=== PATIENT | female | born 1985 | race Caucasian/White ===

== ENCOUNTER 2019-06-06 16:20 | Outpatient (RCR) | payer BC, SELFPAY ==
[2019-06-06] MEDS: RHO(D) IMMUNE GLOBULIN 300 MCG SYRINGE IM (21:10)
== END 2019-09-04 23:59 | disposition home or self-care (01) ==
LOC: ANHLAB 16:20
PROVIDERS: Visit Provider Obstetrics & Gynecology Gynecology
DX: Z29.13 Encounter for prophylactic Rho(D) immune globulin (principal); O36.0920 Maternal care for other rhesus isoimmunization, second trimester, not applicable or unspecified; Z3A.00 Weeks of gestation of pregnancy not specified
CPT/HCPCS: 36415; 36430; 90384; 96372; J2790

== ENCOUNTER 2019-08-06 09:02 | Outpatient (RCR) | payer BC, SELFPAY ==
[2019-08-06 11:04] LABS: Hematocrit 32.5 % (37.0-47.0); Hemoglobin 10.8 g/dL (12.0-15.0)
[2019-08-06 11:25] LABS: Glucose 1 Hour PP 50gm Dose 173 mg/dL
[2019-08-06 11:29] LABS: Vitamin D 25 Hydroxy 49.7 ng/mL
[2019-08-06 11:39] LABS: HIV 1/2 Ab P24 Ag Result Negative (Negative)
[2019-08-07] MEDS: RHO(D) IMMUNE GLOBULIN 300 MCG SYRINGE IM (17:17)
== END 2019-11-04 23:59 | disposition home or self-care (01) ==
LOC: ANHLAB 09:02
PROVIDERS: Visit Provider Obstetrics & Gynecology Gynecology
DX: Z36.89 Encounter for other specified antenatal screening (principal); Z29.13 Encounter for prophylactic Rho(D) immune globulin; O36.0930 Maternal care for other rhesus isoimmunization, third trimester, not applicable or unspecified; Z3A.00 Weeks of gestation of pregnancy not specified
CPT/HCPCS: 36415; 82306; 82947; 85014; 85018; 86703; 90384; 96372; G0432; J2790

== ENCOUNTER → 2019-08-27 10:50 | Outpatient (CLI) | payer BC, SELFPAY ==
--- NOTE | ~2019-08-27 | US_ITS ---
EXAMINATION: US OB follow up DATE: 08/27/2019 11:22 INDICATION: Size greater than dates during third trimester , gestational diabetes TECHNIQUE: Real-time ultrasound of the pelvis was performed. The interpreting radiologist was not pre sent for the study. COMPARISON: 07/24/2019 FINDINGS: There is a single living fetus in vertex presentation. The placenta is anterior and 6.5 cm from the internal cervical os. cardiac activity and movement are noted. heart rate is 136 beats per minute (bpm). The amniotic fluid index is 10.4 cm which is normal. The following biometric data were obtained: Biparietal diameter (BPD): 8.5 cm; head circumference (HC): 31.8 cm; abdominal circumference (AC): 31 .2 cm; femur length (FL): 6.5 cm. These measurements are concordant. Estimated weight is 2505 g +/- 375 g, which correlates with the >97th percentile when 10/28/2019 is used as estimated date of delivery. As single measurements, these parameters are each equal to the following estimated gestational ages w ith ranges of +/- 2 standard deviations: BPD: 34 weeks 2 days ( 31 weeks 1 days - 37 weeks 2 days). HC: 35 weeks 6 days ( 32 weeks 6 days - 38 weeks 5 days). AC: 35 weeks 1 days ( 32 weeks 1 days - 38 weeks 1 days). FL: 33 weeks 5 days ( 30 weeks 6 days - 36 weeks 5 days). estimated gestational age based solely on measurements from this exam is 34 weeks 5 days +/- 2 weeks 3 days. IMPRESSION: 1. Single living fetus in vertex presentation. 2. Estimated weight is 2505 g +/- 375 g, which correlates with the >97th percentile when 020 is used as estimated date of delivery. 3. estimated gestational age based solely on measurements from this exam is 34 weeks 5 days +/- 2 weeks 3 days. 4. Normal amniotic fluid index. Reviewed, dictated and finalized at location A. STANT DRAFTER IMPRESSION: 1. Single living fetus in vertex presentation. 2. Estimated weight is 2505 g +/- 375 g, which correlates with the >97th percentile when 10/28/2019 is used as estimated date of delivery. 3. estimated gestational age based solely on measurements from this exam is 34 weeks 5 days +/- 2 weeks 3 days. 4. Normal amniotic fluid index.
== END ==
PROVIDERS: Visit Provider Obstetrics & Gynecology Gynecology
DX: O36.63X0 Maternal care for excessive fetal growth, third trimester, not applicable or unspecified (principal); Z3A.00 Weeks of gestation of pregnancy not specified; Z3A.34 34 weeks gestation of pregnancy
CPT/HCPCS: 76816

== ENCOUNTER 2019-09-09 12:13 | Outpatient (CLI) | payer BC, SELFPAY ==
[2019-09-09 13:27] VITALS: BP 115/63; PULSE 86
== END 2019-09-09 12:26 | disposition home or self-care (01) ==
PROVIDERS: Visit Provider Obstetrics & Gynecology Gynecology
DX: O24.419 Gestational diabetes mellitus in pregnancy, unspecified control (principal)
CPT/HCPCS: 59025

== ENCOUNTER → 2019-10-01 10:15 | Outpatient (CLI) | payer BC, SELFPAY ==
--- NOTE | ~2019-10-01 | US_ITS ---
EXAMINATION: US OB follow up DATE: 10/01/2019 11:06 INDICATION: Gestational diabetes presenting with estimated size greater than estimated gestatio nal age. Assess growth and amniotic fluid index. TECHNIQUE: Real-time ultrasound of the pelvis was performed. The interpreting radiologist was not pre sent for the study. COMPARISON: 09/23/2019 FINDINGS: There is a single living fetus in vertex presentation. The placenta is anterior. heart rate is 151 beats per minute (bpm). The amniotic fluid index is 12.8 cm, which is normal (5th%-95%: 7.7-24. 9 cm at 36 weeks estimated gestational age). The following biometric data were obtained: BPD: 9.3 cm -> 37 weeks 5 days Head circumference: 34.2 cm -> 39 weeks 3 days Abdominal circumference: 34.2 cm -> 28 weeks 1 days Femur length: 6.9 cm -> 35 weeks 2 days These measurements are concordant. Head circumference to abdominal circumference ratio: 1.00 (normal range 0.90-1.05). Estimated weight: 3234 g (+/-) 485 g. or 7 lbs. 2 oz. (+/-) 1 lb. 1 oz. IMPRESSION: 1. Single living fetus in vertex presentation with heart rate of 151 bpm. 2. Normal amniotic fluid index of 12.8 cm. 3. Estimated weight is 86th percentile by Hadlock criteria when 10/28/2019 is used as the estima jo ann date of delivery (DAVE) based upon earliest ultrasound performed at this institution on 04/07/2019. Please correlate with clinical information or earlier ultrasounds for most accurate DAVE. Reviewed, dictated and finalized at location A. IMPRESSION: 1. Single living fetus in vertex presentation with heart rate of 151 bpm. 2. Normal amniotic fluid index of 12.8 cm. 3. Estimated weight is 86th percentile by Hadlock criteria when 10/28/2019 is used as the estimated date of delivery (DAVE) based upon earliest ultrasound performed at this institution on 04/07/2019. Please correlate with clinical inf ormation or earlier ultrasounds for most accurate DAVE.
== END ==
PROVIDERS: Visit Provider Obstetrics & Gynecology Gynecology
DX: Z36.9 Encounter for antenatal screening, unspecified (principal); Z3A.00 Weeks of gestation of pregnancy not specified
CPT/HCPCS: 76816

== ENCOUNTER 2019-10-22 16:01 | Outpatient (RCR) | payer BC, SELFPAY ==
[2019-09-12 21:52] VITALS: BP 117/65; PULSE 89
[2019-09-16 16:39] VITALS: BP 118/59; PULSE 99
[2019-09-19 20:40] VITALS: BP 118/76; PULSE 83
[2019-09-23 09:25] VITALS: BP 113/67; PULSE 102
[2019-09-26 16:37] VITALS: BP 112/65; PULSE 78
[2019-09-30 13:00] VITALS: BP 116/64; PULSE 89
[2019-10-04 13:54] VITALS: BP 120/67; PULSE 88
[2019-10-08 17:14] VITALS: BP 122/77; PULSE 87
[2019-10-11 16:10] VITALS: BP 120/70; PULSE 89
[2019-10-18 16:14] VITALS: BP 111/67
--- NOTE | ~2019-10-22 | US_ITS ---
EXAMINATION: US OB BPP wo non-stress DATE: 09/23/2019 11:02 CDT INDICATION: decelerations. Gestational diabetes. TECHNIQUE: Real-time transabdominal obstetric ultrasound. FINDINGS: 08/27/2019 There is a single living fetus in vertex presentation. The placenta is anterior without placenta pre via. cardiac activity and movement is noted with a heart rate of 130 beats per minute. Biophysical profile: breathin of 2 movement: 2 of 2 tone: 2 of 2 Amniotic flud pocket: 2 of 2 Total score: 8 of 8 IMPRESSION: 1. Single living intrauterine in vertex presentation. 2: Total biophysical profile score of 8/8. Reviewed, dictated and finalized at location A.
[2019-10-22 16:23] VITALS: BP 122/74
== END 2019-10-24 07:51 | disposition home or self-care (01) ==
LOC: ANHOBOP 16:01
PROVIDERS: Visit Provider Obstetrics & Gynecology Gynecology
DX: O24.419 Gestational diabetes mellitus in pregnancy, unspecified control (principal); Z3A.33 33 weeks gestation of pregnancy; Z3A.34 34 weeks gestation of pregnancy; Z3A.35 35 weeks gestation of pregnancy; Z3A.36 36 weeks gestation of pregnancy; Z3A.37 37 weeks gestation of pregnancy; Z3A.38 38 weeks gestation of pregnancy; Z3A.39 39 weeks gestation of pregnancy
CPT/HCPCS: 59025; 76819

== ENCOUNTER 2019-10-23 04:45 | Inpatient (IN) | payer BC, SELFPAY ==
[2019-10-23] VITALS (20 sets, daily range): BP systolic 101–154; BP diastolic 61–87; PULSE 73–101; RESP 16–18; TEMP 36.4–36.9; O2SAT 98–99; BMI 36.1
--- NOTE | 2019-10-23 04:45 | LDADM ---
This patient, Estrellita Zurita, was admitted to Labor/Delivery/Recovery 104 on 10/23/19 at 04:45. Plans for labor, pain management and were discussed with patient. Patient/family oriented to hospital policies and general routines including ID bracelet, bed and alarms, visiting hours, pain management, procedures, bathroom and other care routines, personal items, smoking policy, room service/diet and guest tray routines, security routines, and visiting hours. Patient/Family are encouraged to report perceived risks to care and to ask questions if they do not understand what they are told or what they should do. See OBIX for further documentation.
[2019-10-23 05:16] LABS: Glucose Point of Care 114 (65-105)
[2019-10-23 05:23] LABS: Basophils Absolute Auto 0.1 K/mm3 (0.0-0.1); Basophils Percent Auto 0.6 % (0.2-1.2); Eosinophils Absolute Auto 0.1 K/mm3 (0-0.3); Eosinophils Percent Auto 0.9 % (0-4.4); Hematocrit 36.7 % (37.0-47.0); Hemoglobin 12.1 g/dL (12.0-15.0); Immature Granulocyte Absolute 0.06 K/mm3 (0.00-0.031); Immature Granulocyte Percent A 0.5 % (0-0.5); Lymphocytes Absolute Auto 2.78 K/mm3 (0.9-3.2); Lymphocytes Percent Auto 24.5 % (18.3-44.2); Mean Corpuscular Hemoglobin 30.3 pg (26-34); Mean Platelet Volume 10.8 fl (7.4-10.4); Monocytes Absolute Auto 0.7 K/mm3 (0.1-0.6); Neutrophils Absolute Auto 7.6 K/mm3 (1.3-6.7); Neutrophils Percent Auto 67.5 % (45.5-73.1); Platelet Count Result 218 k/mm3 (150-375); Red Blood Count 3.99 M/mm3 (4.2-5.4); Red Cell Distribution Width 13.9 % (11.5-14.5); White Blood Count 11.3 K/mm3 (4.5-10.0)
[2019-10-23] MEDS: LACTATED RINGERS 1,000 ML 125 ML IV CONT (05:33)
--- NOTE | 2019-10-23 07:01 | WPDOBADMIT ---
Obstetrics - Admit Note Admission Note: record reviewed. No pertinent additions to the history and/or any subsequent changes in the physical findings that are not consistent with the expected course of the were found. Additions to the history and/or subsequent changes in the physical findings follow. None.Here for active labor. Now /-2. AROM with clear fluid.
[2019-10-23 07:10] LABS: Glucose Point of Care 92 (65-105)
[2019-10-23] MEDS: OXYTOCIN 30 UNITS/NS 500 ML 30 UNITS/500 ML BAG 999 UNITS IV CONT (07:24)
--- NOTE | 2019-10-23 07:29 | PM.OBPRVD ---
OB - Delivery Note Procedure Delivery date: 10/23/19 Procedure: events: Gestational Diabetes Intrapartal events: None Delivery monitor: external FHT and external uterine Route of delivery: Laceration description: Periurethral - 1st Degree Specimen: Yes (placenta) Estimated blood loss (mL): 100 Anesthesia type: None Disposition: floor [place] Baby Weeks of gestation at delivery: 39 gender: Male presentation: vertex Placenta delivery description: Spontaneous cord vessel description: 3 Vessels score one minute: 8 score five minutes: 9
--- NOTE | 2019-10-23 07:31 | PM.OBDSVD ---
DS: Diagnosis Discharge Diagnosis (1) (normal spontaneous vaginal delivery): Code(s): O80 - Encounter for full-term uncomplicated delivery Status: Acute (2) GDM, class A2: Code(s): O24.419 - Gestational diabetes mellitus in , unspecified control Status: Acute Assessment and Plan: 2 hour GTT at 6 wk (3) 39 weeks gestation of : Code(s): Z3A.39 - 39 weeks gestation of Status: Acute OB - DS: Summary OB Procedures : NST and Ultrasound OB Procedures Intrapartum: Spontaneous Vag Delivery OB Procedures: : None Peripartum Data Infant Delivery Method: Natural Vaginal Laceration description: Periurethral - 1st Degree complications: none Status at Discharge Functional status at discharge: independent ambulation Overall status at discharge: patient is progressing back to baseline Time Spent with Patient Time attestation: Total time spent providing and/or coordinating discharge services: DS: Data Data Completed and Pending Labs on day of discharge: Labs from last 24 hours 10/23/19 10/23/19 10/23/19 07:08 05:12 05:12 WBC RBC Hgb Hct MCV MCH MCHC RDW Plt Count MPV Immature Gran % (Auto) Neut % (Auto) Lymph % (Auto) [place] % (Auto) Eos % (Auto) Baso % (Auto) Lymph # (Auto) [place] # (Auto) Eos # (Auto) Baso # (Auto) Abs Immat Gran (auto) Absolute Neuts (auto) Absolute Nucleated RBC Nucleated RBC % POC Capillary Glucose 92 RPR Pending Blood Type A Negative Antibody Screen Negative 10/23/19 10/23/19 05:12 05:11 WBC 11.3 H RBC 3.99 L Hgb 12.1 Hct 36.7 L MCV 92.0 MCH 30.3 MCHC 33.0 RDW 13.9 Plt Count 218 MPV 10.8 H Immature Gran % (Auto) 0.5 Neut % (Auto) 67.5 Lymph % (Auto) 24.5 [place] % (Auto) 6.0 Eos % (Auto) 0.9 Baso % (Auto) 0.6 Lymph # (Auto) 2.78 [place] # (Auto) 0.7 H Eos # (Auto) 0.1 Baso # (Auto) 0.1 Abs Immat Gran (auto) 0.06 H Absolute Neuts (auto) 7.6 H Absolute Nucleated RBC 0.0 Nucleated RBC % 0.0 POC Capillary Glucose 114 H RPR Blood Type Antibody Screen Discharge Plan Discharge Attending physician on discharge: Elizabeth Porter Discharging Clinician: Elizabeth Porter Anticipated Discharge Date/Time: 10/25/19 07:32 Patient Disposition: Home, Self-Care Activity: may shower and pelvic rest Diet: regular Discharge Instructions: Education: Mom and Baby Guide Given to: Mother Follow-Up: Call your delivering provider's office for an appointment to be seen in: 4 Weeks Mom and baby should come to the [facility] for the follow-up appointment. Appointment Date/Time: October 25, 2019 at 11:00 am What to expect at your follow-up visit: Blood Pressure Check Call [phone] if you are unable to keep your appointment time. BREAST CARE: 1. Wear a snug supportive bra. 2. For engorgement discomfort: Breast Feeding: A. Apply warm moist washcloths B. Express milk as needed to relieve engorgement C. Wear loose clothing 3. For sore nipples: A. Identify correct latch-on B. Apply warm moist washcloths before and after nursing C. Air dry nipples after nursing D. May apply Lansinoh cream to nipples PERINEAL CARE: 1. Until bleeding stops, use your zahida bottle after urinating 2. Change your pad frequently throughout the day 3. You may take sitz baths several times a day (fill your bathtub with warm water and soak for 20 minutes.) Do NOT bathe in the water 4. No tub baths until seen by your physician - You may shower ACTIVITY: 1. Rest as much as possible. 2. Do not exercise or lift anything heavier than your baby (such as laundry or other children.) 3. Avoid stairs or driving as much as possible. 4. Do not put anything into the
[2019-10-23] MEDS: OXYTOCIN 30 UNITS/NS 500 ML 30 UNITS/500 ML BAG 125 UNITS IV CONT (07:57)
[2019-10-23 08:46] LABS: Amphetamine Screen Urine Negative (Negative); Barbiturate Screen Urine Negative (Negative); Benzodiazepines Screen Urine Negative (Negative); Cannabinoid Screen Urine Negative (Negative); Cocaine Screen Urine Negative (Negative); Methadone Screen Urine Negative (Negative); Opiate Screen Urine Negative (Negative); Phencyclidine Screen Urine Negative (Negative)
[2019-10-23 09:03] LABS: Rapid Plasma Reagin Non-Reactive (NonReactive)
[2019-10-23] MEDS: BENZOCAINE 20% AER SPR (*SP) 56 GM CAN 1 SPRAY TOPICAL (09:26)
[2019-10-23] MEDS: WITCH HAZEL 40 PADS 1 PAD TOPICAL (09:26)
[2019-10-23] MEDS: MULTIVIT/MIN/PREN/FOL AC/IRON TABLET 1 TAB PO (10:04)
[2019-10-23] MEDS: IBUPROFEN 600 MG TABLET PO ×3 (10:04→23:26)
[2019-10-23] MEDS: LANOLIN (LANSINOH) 7.5 GM CREAM 1 APPLIC TOPICAL (10:05)
--- NOTE | 2019-10-23 13:00 | PC.NURSE ---
Consulted with patient, mother reports infant eagerly latched for first feeding. Mother nursed other children, last child to nurse is 8. Reviewed infant feeding cues, frequencies, duration of feedings, feeding elimination flow sheet, and signs of adequate intake. Nipple care reviewed. Requested mother to call out for RN/LC assistance next feeding. Instructed feeding should be initiated three hours from start of last feeding or if feeding cues are noted before. Mother voiced understanding of information shared.
--- NOTE | 2019-10-23 13:00 | PC.NURSE ---
0954 Pt admitted to room 284 per wheelchair from labor and delivery after spontaneous vaginal delivery of viable male infant at [address] Porter. Mother is a and is choosing to breast feed infant; FOB present; this is his first baby. Couple oriented to room, staffing and procedures; admission folder reviewed with them. Pt's VSS and assessment WNL.
[2019-10-24 05:41] LABS: Hematocrit 31.4 % (37.0-47.0); Hemoglobin 10.2 g/dL (12.0-15.0)
--- NOTE | 2019-10-24 07:45 | PC.NURSE ---
Pt introductions made and plan of care discussed per post , pain management, breast feeding, daily care activities and pending discharge to home. PT verbalized understanding of such care.
[2019-10-24 08:05] VITALS: BP 113/66; PULSE 87; RESP 16; TEMP 37.6; O2SAT 100
--- NOTE | 2019-10-24 08:06 | WPDANLDPN2 ---
Anes-Prog Note L&D Date/Time: 10/24/19 08:06 Comfortable throughout: labor and delivery Neuraxial method: epidural Epidural/Spinal procedure site: clean & non-tender Neuro status: Neuro function grossly intact. Cardiovascular status: normal Respiratory status: normal Airway patency: baseline Mental status: baseline Post-Op hydration status: normal Vital Signs: Last Vital Signs Temp 36.5 C 10/23/19 21:04 Pulse 101 H 10/23/19 21:04 Resp 18 10/23/19 21:04 BP 107/61 10/23/19 21:04 Pulse Ox 99 10/23/19 21:04 Post-procedural complaints: none Patient feedback: Patient satisfied with anesthetic care.
--- NOTE | 2019-10-24 08:21 | P.PNOB_ITS ---
OB - PN: Subj Subjective Date/time seen: 10/24/19 08:21 Patient comments: no complaints, pain well controlled and tolerating diet baby status: doing well and nursing well [place] feeding status: exclusively breast feeding OB - PN: Obj Data Labs CBC & Chem 7: 10/24/19 04:51 Labs: Laboratory Results - last 24 hr 10/23/19 10/23/19 10/24/19 05:12 07:59 04:51 Hgb Hct Urine Opiates Screen Negative Urine Methadone Screen Negative Ur Barbiturates Screen Negative Ur Phencyclidine Scrn Negative Ur Amphetamine Screen Negative U Benzodiazepines Scrn Negative Urine Cocaine Screen Negative U Cannabinoids Screen Negative RPR Non-reactive Blood Type A Negative Antibody Screen Negative Screen Negative Baby's Blood Type A pos Baby's BRAD Negative Doses of RhIg Required 1 10/24/19 04:51 Hgb 10.2 L Hct 31.4 L Urine Opiates Screen Urine Methadone Screen Ur Barbiturates Screen Ur Phencyclidine Scrn Ur Amphetamine Screen U Benzodiazepines Scrn Urine Cocaine Screen U Cannabinoids Screen RPR Blood Type Antibody Screen Screen Baby's Blood Type Baby's BRAD Doses of RhIg Required OB - PN A/P Plan day: 1 Plan: discharge home and follow up 6 weeks Comments: Desires infant to be circumcised. After infant examined and talked to his peds, would be better to perform circumcision later in life.Informed the discussion to parents and their voiced verbalized. Time Spent With Patient Time: Total time spent is greater than 50% in coordination of care (as document ed) at patient's floor/unit and/or counseling patient: Time with patient: 15 - 25 minutes Review of Systems Constitutional: Constitutional: Reports no additional constitutional complaints Cardiovascular: Cardiovascular: Reports no additional cardiovascular complaints Respiratory: Respiratory: Reports no additional respiratory complaints Gastrointestinal: Gastrointestinal: Reports no additional gastrointestinal complaints Genitourinary: Genitourinary: Reports no additional female genitourinary complaints Exam Const: General: comfortable, no acute distress, alert and awake Resp: Effort & Inspection: normal respiratory effort Auscultation: clear to auscultation bilaterally Cardio: Rate: regular rate GI: Auscultation: normal bowel sounds Other: Fundus firm below umbilicus
--- NOTE | 2019-10-24 08:24 | PM.OBDSVD ---
OB - DS: Summary OB Procedures : NST OB Procedures Intrapartum: Spontaneous Vag Delivery OB Procedures: : None Peripartum Data Infant Delivery Method: Natural Vaginal Time Spent with Patient Time attestation: Total time spent providing and/or coordinating discharge services: Exam Const: General: comfortable, no acute distress, alert and awake Resp: Effort & Inspection: normal respiratory effort Auscultation: clear to auscultation bilaterally Cardio: Rate: regular rate GI: GI Palp: Yes Soft to palpation DS: Data Data Completed and Pending Pending studies at discharge: Pending at discharge 10/23/19 07:24 Surgical [PTH] Routine Labs on day of discharge: Labs from last 24 hours 10/24/19 10/24/19 10/23/19 04:51 04:51 07:59 Hgb 10.2 L Hct 31.4 L Urine Opiates Screen Negative Urine Methadone Screen Negative Ur Barbiturates Screen Negative Ur Phencyclidine Scrn Negative Ur Amphetamine Screen Negative U Benzodiazepines Scrn Negative Urine Cocaine Screen Negative U Cannabinoids Screen Negative RPR Blood Type A Negative Antibody Screen Negative Screen Negative Baby's Blood Type A pos Baby's BRAD Negative Doses of RhIg Required 1 10/23/19 05:12 Hgb Hct Urine Opiates Screen Urine Methadone Screen Ur Barbiturates Screen Ur Phencyclidine Scrn Ur Amphetamine Screen U Benzodiazepines Scrn Urine Cocaine Screen U Cannabinoids Screen RPR Non-reactive Blood Type Antibody Screen Screen Baby's Blood Type Baby's BRAD Doses of RhIg Required Discharge Plan Discharge Attending physician on discharge: Elizabeth Porter Discharging Clinician: Elizabeth Porter Anticipated Discharge Date/Time: 10/25/19 07:32 Patient Disposition: Home, Self-Care Activity: may shower and pelvic rest Diet: regular Discharge Instructions: Education: Mom and Baby Guide Given to: Mother Follow-Up: Call your delivering provider's office for an appointment to be seen in: 4 Weeks Mom and baby [facility] come [facility] for the follow-up appointment. Appointment Date/Time: October 25, 2019 at 11:00 am What to expect at your follow-up visit: Blood Pressure Check Call [phone] if you are unable to keep your appointment time. BREAST CARE: 1. Wear a snug supportive bra. 2. For engorgement discomfort: Breast Feeding: A. Apply warm moist washcloths B. Express milk as needed to relieve engorgement C. Wear loose clothing 3. For sore nipples: A. Identify correct latch-on B. Apply warm moist washcloths before and after nursing C. Air dry nipples after nursing D. May apply Lansinoh cream to nipples PERINEAL CARE: 1. Until bleeding stops, use your zahida bottle after urinating 2. Change your pad frequently throughout the day 3. You may take sitz baths several times a day (fill your bathtub with warm water and soak for 20 minutes.) Do NOT bathe in the water 4. No tub baths until seen by your physician - You may shower ACTIVITY: 1. Rest as much as possible. 2. Do not exercise or lift anything heavier than your baby (such as laundry or other children.) 3. Avoid stairs or driving as much as possible. 4. Do not put anything into the vagina. No douching, tampons, or sexual activity until seen by physician. NOTIFY PHYSICIAN IF YOU HAVE ANY QUESTIONS OR IF ANY OF THE FOLLOWING SYMPTOMS OCCUR: 1. If your perineum becomes red, swollen, or more painful than what you have experienced in the hospital. 2. If your vaginal bleeding becomes foul smelling. 3. If your vaginal bleeding becomes more heavy than a period or if your bleeding changes from pink to bright red. However, you may pass an occasional walnut-sized clot once or twice for the first week . 4. If you experience a sharp, shooting pain in you calv
--- NOTE | 2019-10-24 08:55 | PC.NURSE ---
Patient viewed the discharge video Mother & Baby Care, The First Two Weeks . Patient was given the opportunity and encouraged to ask questions. Patient verbalized understanding of information shared and has been given the mother/baby guide for home reference.
--- NOTE | 2019-10-24 09:30 | PC.NURSE ---
Mother is able to independently latch infant with appropriate positioning/alignment. She reports slight nipple discomfort, is feeding as required and waking to feed if needed. Requested mother call out next feeding for observation of latch. Infant has had 8 effective feedings in the past 24 hours, and is currently meeting outcomes for weight, output, jaundice and feeding frequencies. Mother states she feels confident to continue effective at home. Reviewed transition to breast milk, signs of adequate intake, and engorgement/relief. Instructed to call ICP if intake/output less than required. Reviewed regular medications mother is taking. Information provided per Jen. Reviewed community resources on the [facility] and in the Mom/Baby guide. Information on outpatient services provided. Mother has no further questions at this time.
[2019-10-24] MEDS: MULTIVIT/MIN/PREN/FOL AC/IRON TABLET 1 TAB PO (10:40)
[2019-10-24] MEDS: IBUPROFEN 600 MG TABLET PO (10:40)
[2019-10-24] MEDS: DOCUSATE SODIUM 100 MG CAPSULE PO (10:40)
[2019-10-24] MEDS: RHO(D) IMMUNE GLOBULIN 300 MCG SYRINGE IM (12:27)
--- NOTE | 2019-10-24 13:00 | PC.NURSE ---
PT received discharge instructions per protocol and verbalized understanding of such care
--- NOTE | 2019-10-24 13:37 | PC.NURSE ---
PT discharged to home ambulatory accompanied by spouse and to waiting car. Follow up appts confirmed
[2019-10-25 11:27] VITALS: BP 118/77; PULSE 79; RESP 18; TEMP 36.9
== END 2019-10-24 13:37 | disposition home or self-care (01) | DRG 807 ==
LOC: ANHLDR 07:32 → ANHOB2 10:00
PROVIDERS: Admitting Provider Obstetrics & Gynecology Gynecology; Visit Provider Obstetrics & Gynecology Gynecology
DX: O24.429 Gestational diabetes mellitus in childbirth, unspecified control (principal); Z37.0 Single live birth; Z3A.39 39 weeks gestation of pregnancy; O76 Abnormality in fetal heart rate and rhythm complicating labor and delivery
CPT/HCPCS: 36415; 80307; 85014; 85018; 85025; 86592; 86850; 86900; 86901; 88307; 90384; A9270; J2590; J2790; J7120

== ENCOUNTER 2021-09-13 15:39 | Emergency (ER) | payer BC, SELFPAY ==
[2021-09-13 15:41] VITALS: BP 143/67; PULSE 77; RESP 16; O2SAT 100
--- NOTE | 2021-09-13 16:48 | ED.GENADULT ---
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 Complaining of right buttock pain. Patient denies head injury, neck injury, back pain, chest pain, abdominal pain, vaginal bleeding or discharge. Patient is 6 weeks . Patient is 5, para 4, 0. Related Data Home Medications Medication Instructions Recorded Confirmed PNV cmb#95-ferrous fumarate-FA 1 tablet PO DAILY 10/08/19 10/23/19 [] ergocalciferol (vitamin D2) 1,250 mcg PO WEEKLY 10/08/19 10/23/19 [Vitamin D2] ferrous sulfate 325 mg PO BID 10/08/19 10/23/19 Allergies Allergy/AdvReac Type Severity Reaction Status Date / Time Penicillins Allergy Unknown Hives Verified 09/13/21 15:50 Review of Systems Review of Systems: CONSTITUTIONAL: Denies fever, chills, or sweats. EYES: Denies visual changes, redness, or discharge. ENT: Denies rhinorrhea, congestion, sore throat, or otalgia. CARDIOVASCULAR: Denies chest pain, palpitations, or edema. RESPIRATORY: Denies cough or dyspnea. GASTROINTESTINAL: Denies abdominal pain, nausea, vomiting, or diarrhea. GENITOURINARY: Denies dysuria or hematuria. SKIN: Denies rash or itching. MUSCULOSKELETAL: Denies back pain, joint pain, or myalgia. NEUROLOGIC: Denies headache, numbness, or weakness. PSYCHIATRIC: Denies anxiety or depression. [facility] Family History Family History Mother Hypertension Grandparent Hypertension Social History Social History Smoking status: Former smoker Tobacco type: cigarettes Second hand tobacco smoke exposure: No Substance use: former Spiritual care concerns: No Exam Narrative: General appearance: Well-developed, well-nourished Skin: Normal color Head: Normocephalic, nontraumatic Eyes: Clear conjunctiva ENT: Oropharynx normal, ears normal, nose normal Neck: Supple, nontender Chest and respiratory: Airway patent, no respiratory distress, no accessory muscle use Heart: Regular rate/rhythm Abdomen: Soft, nontender, no organomegaly, quiet bowel sounds Vascular: Normal peripheral pulses, normal capillary refill. Musculoskeletal: Normal range of motion, nontender back mild tenderness at the center of right buttock, no bruises, no swelling, no rash Neurologic: Alert and oriented ?3, ASSOCIATE DIRECTOR FINANCE is normal as tested, no gross motor deficit Course Course Emergency Course: Stable Consultations Consultation #1: Dr. Porter Agreed with the plan of RhoGam and discharge Date: 09/13/21 Time: 17:37 Vital Signs Vital signs: Vital Signs Pulse Rate 77 09/13/21 15:41 Respiratory Rate 16 09/13/21 15:41 Blood Pressure 143/67 H 09/13/21 15:41 Pulse Oximetry 100 09/13/21 15:41 Pulse Rate 77 09/13/21 15:41 Respiratory Rate 16 09/13/21 15:41 Blood Pressure 143/67 H 09/13/21 15:41 Pulse Oximetry 100 09/13/21 15:41 Medical Decision Making MDM Narrative Medical decision making narrative: a 6 weeks , and fell off a horse, no abdominal pain, no vaginal bleeding or discharge. Physical exam showed no acute changes to require imaging. RhoGam ordered Patient will be discharged to follow-up with her LINE HELPER for further evaluation Vital Signs Vital Signs: Vital Signs Pulse Rate 77 09/13/21 15:41 Respiratory Rate 16 09/13/21 15:41 Blood Pressure 143/67 H
--- NOTE | 2021-09-13 17:14 | PC.NURSE ---
called to lab for RH Immune Globulin Screen. lab states test will be about 15 more minutes.
[2021-09-13 18:08] VITALS: BP 111/72; PULSE 61; RESP 16; O2SAT 100
[2021-09-13] MEDS: RHO(D) IMMUNE GLOBULIN 300 MCG/2 ML SYRINGE IM (18:15)
== END 2021-09-13 18:16 | disposition home or self-care (01) ==
PROVIDERS: Emergency Provider Emergency Medicine
DX: O9A.211 Injury, poisoning and certain other consequences of external causes complicating pregnancy, first trimester (principal); S39.92XA Unspecified injury of lower back, initial encounter; Z3A.01 Less than 8 weeks gestation of pregnancy; V80.010A Animal-rider injured by fall from or being thrown from horse in noncollision accident, initial encounter; Z87.891 Personal history of nicotine dependence
CPT/HCPCS: 36415; 85461; 90384; 96372; 99283; J2790

== ENCOUNTER → 2021-09-28 13:50 | Outpatient (CLI) | payer BC, SELFPAY ==
--- NOTE | ~2021-09-28 | US_ITS ---
US OB <= 14 weeks fetus DATE: 09/28/2021 14:06 INDICATION: Fall from a horse 2 weeks ago. Gestational age determination. TECHNIQUE: Real-time imaging via transabdominal approach COMPARISON: None FINDINGS: Uterus measures 14 x 5 cm height, 7.4 cm anteroposterior and 8.2 cm transverse dimension. There is an intrauterine gestational sac with pole and yolk sac. heart rate of 172 bpm. Rangely-rump length averages 1.98 cm, consistent with 8 weeks 4 days estimated gestational age, estimat ed gestational age of 1005/06/2022. There is a small subchorionic hematoma at the inferior aspect of the gestational sac measuring 7 x 12 x 19 mm. Right ovary 3.1 x 2.0 x 3.0 cm. Left ovary 3.5 x 2.5 x 2.6 cm. No pelvic mass lesion or abnormal pelvic fluid collection is noted. IMPRESSION: Estimated gestational age of 8 weeks 4 days; DAVE: 05/06/2022 Small subchorionic hematoma Reviewed, dictated and finalized at [facility]. Reviewed, dictated and finalized at location A.
== END ==
PROVIDERS: Visit Provider Obstetrics & Gynecology Gynecology
DX: O46.91 Antepartum hemorrhage, unspecified, first trimester (principal); Z3A.08 8 weeks gestation of pregnancy
CPT/HCPCS: 76801

== ENCOUNTER → 2021-10-27 11:20 | Outpatient (CLI) | payer BC, SELFPAY ==
--- NOTE | ~2021-10-27 | US_ITS ---
EXAMINATION: US OB limited DATE: 10/27/2021 11:49 INDICATION: Subchorionic hematoma follow-up, first trimester TECHNIQUE: Real-time ultrasound of the pelvis was performed. The interpreting radiologist was not pre sent for the study. COMPARISON: 09/28/2021 FINDINGS: The uterus measures 17.7 x 7.8 x 12.7 cm. There is an intrauterine gestational sac. A 2.5 x 0.8 cm hypoechoic area is seen adjacent to the gestational sac. cardiac activity and mov ement are noted. heart rate is 173 beats per minute (bpm). IMPRESSION: 1. Subchorionic hematoma with slight increase in size since the comparison examination. Reviewed, dictated and finalized at location A. IMPRESSION: 1. Subchorionic hematoma with slight increase in size since the comparison exam ination.
== END ==
PROVIDERS: Visit Provider Obstetrics & Gynecology Gynecology
DX: O36.8910 Maternal care for other specified fetal problems, first trimester, not applicable or unspecified (principal); Z3A.13 13 weeks gestation of pregnancy
CPT/HCPCS: 76815

== ENCOUNTER → 2021-11-17 15:37 | Outpatient (CLI) | payer BC, SELFPAY ==
--- NOTE | ~2021-11-17 | US_ITS ---
EXAMINATION: US OB limited DATE: 11/17/2021 15:54 INDICATION: Subchorionic hematoma, second trimester TECHNIQUE: Real-time ultrasound of the pelvis was performed. The interpreting radiologist was not pre sent for the study. COMPARISON: 10/27/2021 FINDINGS: There is a single living fetus in vertex presentation. The placenta is posterior and 2.1 cm from the internal cervical os. There is a 1.9 x 1.4 cm hypoechoic area of the placenta which is decr eased in size. cardiac activity and movement are noted. heart rate is 153 beats per minute (bpm). The amniotic fluid index is subjectively normal. IMPRESSION: 1. Single living fetus in vertex presentation. 2. Subchorionic hematoma with decrease in size. Reviewed, dictated and finalized at location A.
== END ==
PROVIDERS: PCP Obstetrics & Gynecology Gynecology; Visit Provider Obstetrics & Gynecology Gynecology
DX: O36.8912 Maternal care for other specified fetal problems, first trimester, fetus 2 (principal); Z3A.00 Weeks of gestation of pregnancy not specified
CPT/HCPCS: 76815

== ENCOUNTER → 2021-12-10 12:51 | Outpatient (CLI) | payer BC, SELFPAY ==
--- NOTE | ~2021-12-10 | US_ITS ---
EXAMINATION: US OB /maternal detail DATE: 12/10/2021 13:22 INDICATION: survey. Subchorionic hematoma. TECHNIQUE: Multiple obstetric sonographic images performed. FINDINGS: Comparison to multiple prior studies sequentially, with oldest reviewed study dated 022. There is a single living fetus in transverse presentation. The placenta is posterior without placent a previa. Placental margin is 5.4 cm to the cervix. Amniotic fluid volume is normal. cardiac activity and movement is noted with a heart rate of 138 beats per minute. The following anatomy was identified as normal: 4 chamber heart 3 vessel cord cord insertion kidneys urinary bladder stomach spine diaphragm ventricles cisterna magna cerebellum The following biometric data were obtained: BPD: 44mm corresponds to gestational age 19 weeks 2 days. Head circumference: 162 mm corresponds to gestational age 19 weeks 0 days. Abdominal circumference: 143 mm corresponds to gestational age 19 weeks 5 days. Femur length: 29 mm corresponds to gestational age 19 weeks 0 days. Head circumference to abdominal circumference ratio: 1.13 (normal range for expected gestational age is 1.09-1.26). Estimated weight: 286 grams +/- 43 grams using Hadlock method, 64.7% by Hadlock method. IMPRESSION: 1: Single living intrauterine with an estimated gestational age of 19weeks 0days by initial ultrasound measurements, with an EDC of 05/06/2022 in transverse presentation. 2. Normal survey. Reviewed, dictated and finalized at location A. IMPRESSION: 1: Single living intrauterine with an estimated gestational age of 19 weeks 0days by initial ultrasound measurements, with an EDC of 05/06/2022 in tr ansverse presentation. 2. Normal survey.
== END ==
PROVIDERS: PCP Obstetrics & Gynecology Gynecology; Visit Provider Obstetrics & Gynecology Gynecology
DX: O36.8912 Maternal care for other specified fetal problems, first trimester, fetus 2 (principal); Z3A.19 19 weeks gestation of pregnancy
CPT/HCPCS: 76805

== ENCOUNTER 2022-02-10 16:25 | Outpatient (RCR) | payer BC, SELFPAY ==
[2022-02-10 17:42] LABS: Hematocrit 31.5 % (37.0-47.0); Hemoglobin 10.2 g/dL (12.0-15.0)
[2022-02-10 18:02] LABS: Glucose 1 Hour PP 50gm Dose 168 mg/dL
[2022-02-10 18:19] LABS: Vitamin D 25 Hydroxy 58.8 ng/mL
[2022-02-10 18:43] LABS: HIV 1/2 Ab P24 Ag Result Negative (Negative)
[2022-02-12] MEDS: RHO(D) IMMUNE GLOBULIN 300 MCG/2 ML SYRINGE IM (15:21)
== END 2022-05-11 23:59 | disposition home or self-care (01) ==
LOC: ANHLAB 16:25
PROVIDERS: Visit Provider Obstetrics & Gynecology Gynecology
DX: Z11.4 Encounter for screening for human immunodeficiency virus [HIV] (principal); Z29.13 Encounter for prophylactic Rho(D) immune globulin; O36.0130 Maternal care for anti-D [Rh] antibodies, third trimester, not applicable or unspecified; Z3A.00 Weeks of gestation of pregnancy not specified
CPT/HCPCS: 36415; 82306; 82947; 85014; 85018; 85461; 86703; 90384; 96372; G0432; J2790

== ENCOUNTER → 2022-03-09 10:00 | Outpatient (CLI) | payer BC, SELFPAY ==
--- NOTE | ~2022-03-09 | US_ITS ---
EXAMINATION: US OB follow up DATE: 03/09/2022 10:47 INDICATION: Estimated size greater than expected for estimated [facility] age [facility]ational [facility]. TECHNIQUE: Real-time ultrasound of the pelvis was performed. The interpreting radiologist was not pre sent for the study. COMPARISON: 12/10/2021 FINDINGS: There is a single living fetus in vertex presentation. The placenta is posterior. heart rate i s 134 beats per minute (bpm). The amniotic fluid index is 21.2 cm, which is normal (5th%-95%: 8.8-23 .8 cm at 31 weeks estimated gestational age). The following biometric data were obtained: BPD: 8.5 cm -> 34 weeks days Head circumference: 130.8 cm -> 34 weeks 2 days Abdominal circumference: 29.4 cm -> 33 weeks 3 days Femur length: 6.4 cm -> 32 weeks 6 days These measurements are concordant. Head circumference to abdominal circumference ratio: 1.05 (normal range 0.95-1.11). Estimated weight: 2182 g (+/-) 327 g or 4 lbs. 13 oz. (+/-) 12 oz. IMPRESSION: 1. Single living fetus in vertex presentation with heart rate of 134 bpm. 2. Normal amniotic fluid index of 21.2 cm. 3. Estimated weight is 93rd percentile by Hadlock criteria when 05/08/2022 is used as the estim ated date of delivery (DAVE). Please correlate with clinical information or earlier ultrasounds for mo st accurate DAVE. Reviewed, dictated and finalized at location A. IMPRESSION: 1. Single living fetus in vertex presentation with heart rate of 134 bpm. 2. Normal amniotic fluid index of 21.2 cm. 3. Estimated weight is 93rd percentile by Hadlock criteria when 2 is used as the estimated date of delivery (DAVE). Please correlate with clinic al information or earlier ultrasounds for most accurate DAVE.
== END ==
PROVIDERS: PCP Obstetrics & Gynecology Gynecology; Visit Provider Advanced Practice Midwife
DX: O36.63X0 Maternal care for excessive fetal growth, third trimester, not applicable or unspecified (principal)
CPT/HCPCS: 76816

== ENCOUNTER 2022-04-05 17:16 | Outpatient (CLI) | payer BC, SELFPAY ==
[2022-04-05 17:28] LABS: Hematocrit 33.4 % (37.0-47.0); Hemoglobin 10.6 g/dL (12.0-15.0); Mean Corpuscular HGB Conc 31.7 g/dl (32-36); Mean Corpuscular Hemoglobin 29.3 pg (26-34); Mean Corpuscular Volume 92.3 fl (80-100); Mean Platelet Volume 10.5 fl (7.4-10.4); Platelet Count Result 222 k/mm3 (150-375); Red Blood Count 3.62 M/mm3 (4.2-5.4); Red Cell Distribution Width 13.1 % (11.5-14.5); White Blood Count 10.8 K/mm3 (4.5-10.0)
== END 2022-04-05 17:17 | disposition home or self-care (01) ==
LOC: ANHLAB 17:18
PROVIDERS: PCP Obstetrics & Gynecology Gynecology; Visit Provider Advanced Practice Midwife
DX: O99.419 Diseases of the circulatory system complicating pregnancy, unspecified trimester (principal); Z3A.00 Weeks of gestation of pregnancy not specified; E53.8 Deficiency of other specified B group vitamins
CPT/HCPCS: 36415; 82607; 85027

== ENCOUNTER → 2022-04-12 14:56 | Outpatient (CLI) | payer BC, SELFPAY ==
--- NOTE | ~2022-04-12 | US_ITS ---
EXAMINATION: US OB follow up DATE: 04/12/2022 15:28 INDICATION: Gestational diabetes TECHNIQUE: Real-time transabdominal obstetric ultrasound. FINDINGS: Comparison to multiple prior studies sequentially, with oldest reviewed study dated 022. There is a single living fetus in vertex presentation. The placenta is posterior without placenta pr evia. cardiac activity and movement is noted with a heart rate of 137 beats per minute. T he amniotic fluid volume is normal. AUNG is 20.9 cm (normal range for gestational age is 7.7-24.9 cm). The following biometric data were obtained: BPD: 95mm corresponds to gestational age 38 weeks 6 days. Head circumference: 343mm corresponds to gestational age 39 weeks 4 days. Abdominal circumference: 347mm corresponds to gestational age 38 weeks 5 days. Femur length: 75mm corresponds to gestational age 38 weeks 3 days. Estimated weight: 3581grams +/- 537grams greater than 97th percentile by Hadlock method.] IMPRESSION: 1. Single living intrauterine in vertex presentation with an estimated gestational age of 36 weeks 2 days by inititial ultrasound. Accelerated growth, large for gestational age. 2. Normal placenta. 3: Normal AUNG measures 20.9 cm. Reviewed, dictated and finalized at location B. IMPRESSION: 1. Single living intrauterine in vertex presentation with an estimat ed gestational age of 36 weeks 2 days by inititial ultrasound. Accelerated feta l growth, large for gestational age. 2. Normal placenta. 3: Normal AUNG measures 20.9 cm.
== END ==
PROVIDERS: PCP Advanced Practice Midwife; Visit Provider Advanced Practice Midwife
DX: O24.414 Gestational diabetes mellitus in pregnancy, insulin controlled (principal); Z3A.36 36 weeks gestation of pregnancy
CPT/HCPCS: 76816

== ENCOUNTER 2022-04-18 15:55 | Outpatient (CLI) | payer BC, SELFPAY ==
[2022-04-18 16:18] VITALS: BP 124/80; PULSE 76; PULSE 82; TEMP 37.2
[2022-04-18 16:31] VITALS: BP 122/66; PULSE 82
--- NOTE | 2022-04-18 16:43 | PC.NURSE ---
Dr. Hooker informed of pt's history and arrival with c/o leaking 3 times in the last 24 hrs. ROM plus negative. NST reactive. Irregular contractions that don't require a SVE. OK to discharge to home.
[2022-04-18 16:45] VITALS: BP 122/66; PULSE 77
== END 2022-04-18 17:00 | disposition home or self-care (01) ==
LOC: ANHOBOP 16:49 → ANHLDR 16:50
PROVIDERS: Visit Provider Obstetrics & Gynecology Gynecology
DX: O42.90 Premature rupture of membranes, unspecified as to length of time between rupture and onset of labor, unspecified weeks of gestation (principal); Z3A.00 Weeks of gestation of pregnancy not specified
CPT/HCPCS: 59025; 84112; 99199

== ENCOUNTER 2022-05-03 05:07 | Inpatient (IN) | payer BC, SELFPAY ==
[2022-05-03] VITALS (57 sets, daily range): BP systolic 109–163; BP diastolic 57–127; PULSE 26–192; RESP 16; TEMP 36.1–36.9; O2SAT 83–100; BMI 37.5
[2022-05-03 05:37] LABS: Glucose Point of Care 133 mg/dl (65-105)
[2022-05-03 05:40] LABS: Basophils Absolute Auto 0.1 K/mm3 (0.0-0.1); Basophils Percent Auto 0.6 % (0.2-1.2); Eosinophils Absolute Auto 0.1 K/mm3 (0-0.3); Eosinophils Percent Auto 0.9 % (0-4.4); Hematocrit 34.5 % (37.0-47.0); Hemoglobin 11.1 g/dL (12.0-15.0); Immature Granulocyte Absolute 0.12 K/mm3 (0.00-0.031); Immature Granulocyte Percent A 1.1 % (0-0.5); Lymphocytes Percent Auto 28.6 % (18.3-44.2); Mean Corpuscular HGB Conc 32.2 g/dl (32-36); Mean Corpuscular Hemoglobin 28.7 pg (26-34); Mean Corpuscular Volume 89.1 fl (80-100); Mean Platelet Volume 11.4 fl (7.4-10.4); Monocytes Absolute Auto 0.5 K/mm3 (0.1-0.6); Neutrophils Absolute Auto 6.7 K/mm3 (1.3-6.7); Neutrophils Percent Auto 63.8 % (45.5-73.1); Nucleated Red Blood Cells Perc 0.3 % (0.0-0.2); Platelet Count Result 209 k/mm3 (150-375); Red Blood Count 3.87 M/mm3 (4.2-5.4); Red Cell Distribution Width 13.7 % (11.5-14.5); White Blood Count 10.5 K/mm3 (4.5-10.0)
--- NOTE | 2022-05-03 05:59 | LDADM ---
This patient, Estrellita Zurita, was admitted to Labor/Delivery/Recovery 105 on 05/03/22 at 05:07. Plans for labor, pain management and were discussed with patient. Patient/family oriented to hospital policies and general routines including ID bracelet, bed and alarms, visiting hours, pain management, procedures, bathroom and other care routines, personal items, smoking policy, room service/diet and guest tray routines, security routines, and visiting hours. Patient/Family are encouraged to report perceived risks to care and to ask questions if they do not understand what they are told or what they should do. See OBIX for further documentation.
[2022-05-03 06:01] LABS: Amphetamine Screen Urine Negative (Negative); Barbiturate Screen Urine Negative (Negative); Benzodiazepines Screen Urine Negative (Negative); Cannabinoid Screen Urine Negative (Negative); Cocaine Screen Urine Negative (Negative); Methadone Screen Urine Negative (Negative); Opiate Screen Urine Negative (Negative); Phencyclidine Screen Urine Negative (Negative)
[2022-05-03] MEDS: OXYTOCIN 30 UNITS/NS 500 ML 30 UNITS/500 ML BAG IV CONT (06:09)
[2022-05-03] MEDS: LACTATED RINGERS 1,000 ML 125 ML IV CONT ×2 (06:09→11:36)
[2022-05-03 06:27] LABS: Rapid Plasma Reagin Non-Reactive (NonReactive)
[2022-05-03 06:31] LABS: HIV 1/2 Ab P24 Ag Result Negative (Negative)
--- NOTE | 2022-05-03 09:25 | WPDOBADMIT ---
Obstetrics - Admit Note Admission Note: record reviewed. No pertinent additions to the history and/or any subsequent changes in the physical findings that are not consistent with the expected course of the were found. Additions to the history and/or subsequent changes in the physical findings follow. Here for MIL at 39 wks for GDMA2. Cervix /-2 anterior. AROM with clear fluid. FHTs reactive. Ok if Estela Babcock does delivery if I am in surgery. Estela osorio.
[2022-05-03 09:45] LABS: Glucose Point of Care 72 mg/dl (65-105)
[2022-05-03 12:40] LABS: Glucose Point of Care 82 mg/dl (65-105)
--- NOTE | 2022-05-03 12:58 | P.PCNOB_ITS ---
OB - Delivery Note Procedure Delivery date: 05/03/22 Procedure: Events: Gestational Diabetes ( on insulin) Induction method: AROM and Per Pitocin Protocol Delivery monitor: External FHT and External Uterine Route of delivery: Laceration Description: Periurethral Specimen: No Quantitative Blood Loss (ml): 50 Anesthesia type: Epidural Disposition: Floor [place] Baby Date of : 05/03/22 Weeks of gestation at delivery: 39 Infant gender: Female presentation: vertex position: Right Occiput Anterior Placenta delivery description: Spontaneous Cord Vessel Description: 3 Vessels score one minute: 8 score five minutes: 9
--- NOTE | 2022-05-03 12:59 | PM.OBDSVD ---
DS: Admitting Diagnosis Discharge Date 05/04/22 Admitting Diagnosis intrauterine at 39 weeks gestational diabetes insulin requirin DS: Discharge Diagnosis Discharge Diagnosis (1) (normal spontaneous vaginal delivery): Code(s): O80 - Encounter for full-term uncomplicated delivery Status: Acute (2) GDM, class A2: Code(s): O24.419 - Gestational diabetes mellitus in , unspecified control Status: Acute (3) 39 weeks gestation of : Code(s): Z3A.39 - 39 weeks gestation of Status: Acute OB - DS: Summary OB Procedures : NST and Ultrasound OB Procedures Intrapartum: Spontaneous Vag Delivery OB Procedures: : None Peripartum Data Infant Delivery Method: Natural Vaginal Laceration Description: Periurethral complications: none Status at Discharge Functional status at discharge: independent ambulation Overall status at discharge: patient is progressing back to baseline Time Spent with Patient Time attestation: Total time spent providing and/or coordinating discharge services: DS: Data Data Completed and Pending Labs on day of discharge: Labs from last 24 hours 05/03/22 05/03/22 05/03/22 12:35 09:42 05:32 WBC RBC Hgb Hct MCV MCH MCHC RDW Plt Count MPV Immature Gran % (Auto) Neut % (Auto) Lymph % (Auto) [place] % (Auto) Eos % (Auto) Baso % (Auto) Lymph # (Auto) [place] # (Auto) Eos # (Auto) Baso # (Auto) Abs Immat Gran (auto) Absolute Neuts (auto) Absolute Nucleated RBC Nucleated RBC % POC Capillary Glucose 82 72 Urine Opiates Screen Negative Urine Methadone Screen Negative Ur Barbiturates Screen Negative Ur Phencyclidine Scrn Negative Ur Amphetamine Screen Negative U Benzodiazepines Scrn Negative Urine Cocaine Screen Negative U Cannabinoids Screen Negative RPR HIV 1&2 Ab/P24 Ag 4thGn Blood Type Antibody Screen Antibody Identification Antigen Identification BRAD, IgG Interpret BRAD, Poly Interpret BRAD, Complement Interp 05/03/22 05/03/22 05/03/22 05:32 05:32 05:32 WBC RBC Hgb Hct MCV MCH MCHC RDW Plt Count MPV Immature Gran % (Auto) Neut % (Auto) Lymph % (Auto) [place] % (Auto) Eos % (Auto) Baso % (Auto) Lymph # (Auto) [place] # (Auto) Eos # (Auto) Baso # (Auto) Abs Immat Gran (auto) Absolute Neuts (auto) Absolute Nucleated RBC Nucleated RBC % POC Capillary Glucose Urine Opiates Screen Urine Methadone Screen Ur Barbiturates Screen Ur Phencyclidine Scrn Ur Amphetamine Screen U Benzodiazepines Scrn Urine Cocaine Screen U Cannabinoids Screen RPR Non-reactive HIV 1&2 Ab/P24 Ag 4thGn Negative Blood Type A Negative Antibody Screen Positive Antibody Identification Inconclusive Antigen Identification Cancelled BRAD, IgG Interpret Not Performed BRAD, Poly Interpret Negative BRAD, Complement Interp Not Performed 05/03/22 05/03/22 05:32 05:29 WBC 10.5 H RBC 3.87 L Hgb 11.1 L Hct 34.5 L MCV 89.1 MCH 28.7 MCHC 32.2 RDW 13.7 Plt Count 209 MPV 11.4 H Immature Gran % (Auto) 1.1 H Neut % (Auto) 63.8 Lymph % (Auto) 28.6 [place] % (Auto) 5.0 Eos % (Auto) 0.9 Baso % (Auto) 0.6 Lymph # (Auto) 3.00 [place] # (Auto) 0.5 Eos # (Auto) 0.1 Baso # (Auto) 0.1 Abs Immat Gran (auto) 0.12 H Absolute Neuts (auto) 6.7 Absolute Nucleated RBC 0.0 Nucleated RBC % 0.3 H POC Capillary Glucose 133 H Urine Opiates Screen Urine Methadone Screen Ur Barbiturates Screen Ur Phencyclidine Scrn Ur Amphetamine Screen U Benzodiazepines Scrn Urine Cocaine Screen U Cannabinoids Screen RPR HIV 1&2 Ab/P24 Ag 4thGn Blood Type Antibody Screen Antibody Identification Antigen Identification BRAD,
--- NOTE | 2022-05-03 15:15 | PC.NURSE ---
Patient transferred to post room #292 via wheelchair. Support person present. Oriented to unit, room, information board, rooming in, admission packet and security measures. Patient verbalizes understanding.
--- NOTE | 2022-05-03 16:20 | PCCCNOTE ---
Care Coordination met with pt. and FOB this afternoon to discuss discharge planning. Pt. and baby are in bed bonding well. Pt. states that her current D/C plan will be to return home with her family. This is pt.'s 5th child, she states she has everything needed to safely bring baby home. Pt. confirms she has a place for baby to sleep and car seat. Pt. will breast feed once home, she does not qualify for WIC. Pt. states baby will see Dr. Ortega for continued medical care at D/C. Pt. tested positive for THC back in 10/06, she tested neg at admission and baby has not been tested. CC will not report drug use to [facility] at this time. Will follow.
[2022-05-03] MEDS: IBUPROFEN 600 MG TABLET PO (23:19)
[2022-05-04 04:10] VITALS: BP 109/81; RESP 16; TEMP 36.2; O2SAT 99
[2022-05-04 04:33] LABS: Glucose Point of Care 93 mg/dl (65-105)
[2022-05-04 04:36] LABS: Hematocrit 32.2 % (37.0-47.0); Hemoglobin 10.2 g/dL (12.0-15.0)
[2022-05-04 07:30] VITALS: BP 111/76; PULSE 89; RESP 16; TEMP 36.6; O2SAT 100
--- NOTE | 2022-05-04 07:57 | PM.OBPNVD ---
OB - PN: Subj Subjective Date/time seen: 05/04/22 07:57 Patient comments: no complaints and pain well controlled baby status: doing well OB - PN: Obj Data Labs CBC & Chem 7: 05/04/22 04:14 Labs: Laboratory Results - last 24 hr 05/03/22 05/03/22 05/03/22 05:32 09:42 12:35 Hgb Hct POC Capillary Glucose 72 82 Blood Type Antibody Screen Antibody Identification Inconclusive Antigen Identification Cancelled BRAD, IgG Interpret Not Performed BRAD, Poly Interpret Negative BRAD, Complement Interp Not Performed Screen Baby's Blood Type Baby's BRAD Doses of RhIg Required 05/04/22 05/04/22 05/04/22 04:14 04:14 04:30 Hgb 10.2 L Hct 32.2 L POC Capillary Glucose 93 Blood Type A Negative Antibody Screen Negative Antibody Identification Antigen Identification BRAD, IgG Interpret BRAD, Poly Interpret BRAD, Complement Interp Screen Negative Baby's Blood Type A pos Baby's BRAD Negative Doses of RhIg Required 1 OB - PN A/P Plan day: 1 Plan: routine care, discharge home, follow up 6 weeks and other (plans BTL after 6 wks) Time Spent With Patient Time: Total time spent is greater than 50% in coordination of care (as documented) at patient's floor/unit and/or counseling patient: Exam : Bimanual exam- vagina & uterus: other (Uterus firm, nt @U)
[2022-05-04 08:00] VITALS: PULSE 85; RESP 16; O2SAT 99
[2022-05-04] MEDS: DOCUSATE SODIUM 100 MG CAPSULE PO (08:19)
[2022-05-04] MEDS: MULTIVIT/MIN/PREN/FOL AC/IRON TABLET 1 TAB PO (08:19)
[2022-05-04] MEDS: IBUPROFEN 600 MG TABLET PO (08:20)
--- NOTE | 2022-05-04 08:40 | WPDANLDPN2 ---
Anes-Prog Note L&D Date/Time: 05/04/22 08:40 Comfortable throughout: labor and delivery Neuraxial method: epidural Epidural/Spinal procedure site: clean & non-tender Neuro status: Neuro function grossly intact. Cardiovascular status: normal Respiratory status: normal Airway patency: baseline Mental status: baseline Post-Op hydration status: normal Vital Signs: Last Vital Signs Temp 97.1 F L 05/04/22 04:10 Pulse 94 05/03/22 23:10 Resp 16 05/04/22 04:10 BP 109/81 05/04/22 04:10 Pulse Ox 99 05/04/22 04:10 O2 Del Method Room Air 05/03/22 15:45 Pain score (VAS): 0 Post-procedural complaints: none Patient feedback: Patient satisfied with anesthetic care. states delivered quickly after epidural placed, before epidural could fully set up. discussed early placement on subsequent deliveries d/t fast labor.
[2022-05-04 11:47] VITALS: BP 114/68; PULSE 85; RESP 16; TEMP 36.8; O2SAT 99
--- NOTE | 2022-05-04 11:54 | PC.NURSE ---
[id number] Mother demonstrates she is able to independently latch infant with appropriate positioning/alignment, with lips flanged effectively using rocking motion with an asymmetrical latch chin buried into the breast and nose near. She denies any nipple discomfort and is responsively . is currently meeting outcomes for weight, output, jaundice and feeding frequencies of 8-12 times in 24 hours. Mother declines any additional assistance/education at this time. Mother is encouraged to call for assistance if her doesn?t wake to latch or there is discomfort with latching. Mother voiced understanding of information shared and mom and baby guide reviewed for additional resource information. Reported to the primary RN.
[2022-05-04] MEDS: RHO(D) IMMUNE GLOBULIN 300 MCG/2 ML SYRINGE IM (13:27)
[2022-05-04 17:30] VITALS: BP 127/76; PULSE 83; RESP 20; TEMP 36.8; O2SAT 98
== END 2022-05-04 14:35 | disposition home or self-care (01) | DRG 807 ==
LOC: ANHLDR 13:00 → ANHOB2 15:23
PROVIDERS: Admitting Provider Obstetrics & Gynecology Gynecology; Visit Provider Obstetrics & Gynecology Gynecology
DX: O24.424 Gestational diabetes mellitus in childbirth, insulin controlled (principal); Z37.0 Single live birth; O71.82 Other specified trauma to perineum and vulva; O76 Abnormality in fetal heart rate and rhythm complicating labor and delivery; Z3A.39 39 weeks gestation of pregnancy
CPT/HCPCS: 36415; 80307; 82948; 85014; 85018; 85025; 85461; 86592; 86703; 86850; 86880; 86900; 86901; 86902; 90384; A9270; G0432; J2590; J2790; J2795; J7120

== ENCOUNTER 2022-07-26 00:45 | Day surgery (SDC) | payer BC, SELFPAY ==
[2022-07-09 12:00] VITALS: BMI 34.4
--- NOTE | 2022-07-09 12:06 | PC.NURSE ---
Report to the Outpatient Waiting Room, entrance under the green pavilion located off [facility], at time 6:00 on date 07/26/22. Planned Procedure Time: 7:30. Time changes happen often and if your time is changed the preop area will call you the afternoon before. - You and your visitor will be asked to self-screen and do not enter if you have any COVID symptoms. - Only one visitor is requested with a max of two and NO children visitors are allowed at this time. - The patient visitor may be requested to leave or wait in car when not with patient due to distancing restrictions. - A mask is REQUIRED within the hospital. Patients may have clear liquids (water, carbonated beverages, clear teas, apple juice) until 3 hours prior to surgery (4:30) with a maximum of 20 ounces. - No food from midnight until time of surgery Take the following medications with a SIP of water the morning of surgery: NONE Medications to discontinue per physician: VITAMINS/SUPPLEMENTS Date to take last dose: 07/22/22 Please no make-up, nail wolof, hairspray, perfume, deodorant, or body powder the day of surgery. No jewelry (including any body piercings) or valuables the day of surgery, leave them at home. Please take a shower or bath the night before, or the morning of, surgery with an antibacterial soap. Wear comfortable, loose fitting clothing. - Jewelry must be removed prior to entering the operating room. Rings and piercings that are not removed may be cut off. - The hospital will not accept responsibility for valuables. - Please leave all valuables, including medications, at home the day of surgery. If you are going home after surgery, a licensed bus van driver must drive you home. - NO public transportation without another adult if you receive anesthesia. - We recommend that an adult stay with you for 24 hours following discharge. - We also recommend that you do not drive, make important decision, drink alcoholic beverages, or take any drugs that were not prescribed by your health care provider for at least 24 hours after your discharge time. Follow any additional instructions given to you from your surgeon. If you or anyone in your household have experienced Covid symptoms in the past week, please notify your surgeon or the nurse liaison at the phone number below for possible testing. Telephone instructions given to PT - NICOLE ABARCA and asked if any additional questions and then verbalized understanding. Patient advised to call surgeon office or pre surgery nurse liaison [phone] if any additional questions.
[2022-07-26] VITALS (7 sets, daily range): BP systolic 108–129; BP diastolic 57–78; PULSE 62–102; RESP 13–19; TEMP 36.2–36.3; O2SAT 97–100
--- NOTE | 2022-07-26 06:39 | WPDANESEPPF ---
Anes - Initial Pre Proc Eval Procedure: Operation Date: 07/26/22 07:30 Proposed Procedures p Laparoscopic Bilateral Tubal Ligation - Elizabeth Porter MD Date/Time: 07/26/22 06:39 Surgeon: Elizabeth Porter MD Pre Op Diagnosis: Desire Sterilization Patient Data Age: 36 Gender: F Height: 1.57 m Weight: 85.3 kg Allergies Allergy/AdvReac Type Severity Reaction Status Date / Time Penicillins Allergy Unknown Hives Verified 07/09/22 11:59 Home Medications Medication Instructions Recorded Confirmed Type cholecalciferol (vitamin D3) 125 125 mcg PO DAILY 07/09/22 07/09/22 History mcg (5,000 unit) tablet (Vitamin D3) ferrous sulfate 325 mg (65 mg 325 mg PO DAILY 07/09/22 07/09/22 History iron) tablet (Iron (ferrous sulfate)) prenat.vits,rand,[id number] 1 tablet PO DAILY 07/09/22 07/09/22 History Patient hx anesthesia problems: none Family hx anesthesia problems: none Results Review: All pre-operative results and documents have been reviewed as part of the pre-operative evaluation. [facility] Surgical History Surgical History (Updated 07/26/22 @ 06:39 by Aristeo Chris MD) History of tympanoplasty Family History Family History Mother Hypertension Grandparent Hypertension Social History Social History Smoking packs per day: 0.5 Smoking cigarettes per day: 10.0 Years smoked: 12 Smoking pack-years: 6.00 Smoking status: Former smoker Tobacco type: cigarettes Second hand tobacco smoke exposure: No Smoking end date: 07/18/17 Alcohol intake: never Substance use: never Substance use type: does not use Last use: stopped when she found out was Living arrangements: with family Spiritual care concerns: No Anes - Eval Final PreProcedure Day of Procedure 07/26/22 06:39 Heart: regular rate and rhythm Lungs: clear to auscultation Airway: Mallampati scale class II Neurological: alert and oriented Last oral intake: >/= 8 hours ASA classification: II Emergent: no Anesthetic plan: proceed Anesthesia type and monitoring: general ETT and standard monitoring Results Review: All pre-operative results and documents have been reviewed as part of the pre-operative evaluation. Informed Consent: The patient's anesthetic plan and its attendant risks and benefits were discussed with the patient/family/POA. Questions were solicited and answers provided to the satisfaction of the patient/family/POA.
[2022-07-26] MEDS: LACTATED RINGERS 1,000 ML 30 ML IV CONT (07:05)
[2022-07-26] MEDS: ACETAMINOPHEN 500 MG TABLET 1000 MG PO (07:10)
--- NOTE | 2022-07-26 07:10 | WPDHPUPDATE1 ---
History and Physical Update Update Date/Time: 07/26/22 07:10 History and Physical has been reviewed, including an updated exam of the patient. There are NO changes in the patient's condition. Risks, benefits, and alternatives have been discussed and questions answered. Patient agrees to proceed with procedure.
--- NOTE | 2022-07-26 07:11 | PM.HPGS ---
History of Present Illness History of Present Illness Consent: Risks, benefits, and alternatives have been discussed and questions answered. Patient agrees to proceed with procedure. Chief complaint: Desire Sterilization Narrative: Estrellita Zurita is a 36 year old female who has completed her childbearing and requests sterilization. Plan is to proceed with laparoscopic tubal ligation via salpingectomies. Risks of infection, bleeding, injury to internal organs , tubal failure ( with increased risk of ectopic), and anesthesia are reviewed. The patient questions were answered and she voices understanding and agrees to proceed Review of Systems Review of Systems: not repeated day of surgery; patient states no changes in status PMFSH Past Medical History Medical History (Updated 07/26/22 @ 07:14 by Elizabeth Porter MD) Anxiety (normal spontaneous vaginal delivery) x5 Surgical History Surgical History (Updated 07/26/22 @ 06:39 by Aristeo Chris MD) History of tympanoplasty Family History Family History Mother Hypertension Grandparent Hypertension Social History Social History Smoking packs per day: 0.5 Smoking cigarettes per day: 10.0 Years smoked: 12 Smoking pack-years: 6.00 Smoking status: Former smoker Tobacco type: cigarettes Second hand tobacco smoke exposure: No Smoking end date: 07/18/17 Alcohol intake: never Substance use: never Substance use type: does not use Last use: stopped when she found out was Living arrangements: with family Spiritual care concerns: No Meds Home Medications and Allergies Home Medications Medication Instructions Recorded Confirmed Type cholecalciferol (vitamin D3) 125 125 mcg PO DAILY 07/09/22 07/09/22 History mcg (5,000 unit) tablet (Vitamin D3) ferrous sulfate 325 mg (65 mg 325 mg PO DAILY 07/09/22 07/09/22 History iron) tablet (Iron (ferrous sulfate)) prenat.vits,rand,vdt-urei-mfzoz 1 tablet PO DAILY 07/09/22 07/09/22 History Allergies Allergy/AdvReac Type Severity Reaction Status Date / Time Penicillins Allergy Unknown Hives Verified 07/09/22 11:59 Exam Const: General: no acute distress Orientation/consciousness: patient oriented x3 Resp: Effort & Inspection: normal respiratory effort GI: GI Palp: Yes Soft to palpation, No Tenderness to palpation present (GI) and No Palpable mass present : External Female Exam: normal external appearance Speculum Exam - Vagina: normal appearance of the vagina and normal vaginal discharge Speculum Exam - Cervix: normal appearance of the cervix Bimanual exam- vagina & uterus: uterine size normal and consistency normal Bimanual Exam- Adnexa, other: normal adnexae and No adnexal tenderness Neuro: General: patient oriented x3 Assessment and Plan Assessment and plan (1) Encounter for sterilization: Code(s): Z30.2 - Encounter for sterilization Status: Acute Assessment and Plan: plan to proceed with bilateral tubal ligation via salpingectomies
--- NOTE | 2022-07-26 08:12 | W.PM.PROC2 ---
Procedure Note - Detailed Date of Procedure 07/26/22 Pre-op Diagnosis Desire Sterilization Post-op Diagnosis Same Procedure Performed laparoscopic bilateral salpingectomies Surgeon Elizabeth Porter MD Anesthesia General Findings normal-appearing tubes and ovaries; slightly globular uterus consistent with small fibroids; normal-appearing pelvis Description of Procedure The patient is taken to the operating room and placed under anesthesia in the dorsal lithotomy position. She was prepped and draped in the usual sterile fashion. Bladder was drained with a red rubber catheter. [place] speculum was placed in the vagina and the cervix grasped on the anterior lip with a tenaculum. The acorn manipulator was placed and the speculum removed. Attention was then turned to the abdomen. The scalpel was used to make an incision below the umbilicus approximately 5mm. The abdomen is tented and the Veress needle placed. The water drop test is normal. Opening patient pressure is 12mmHg. Patient pressure was obtained [id number] . The abdomen is tented with towel clamps and the 5mm trocar placed. It is noted to be too short. The long 5mm trocar was then placed with intra-abdominal placement being confirmed with the laparoscope. The patient is placed in Trendelenburg and 2 incisions were made above the symphysis pubis to the left and right. 5mm trocars were placed under direct visualization in each incision. The right tube was grasped the fimbriated end with an atraumatic grasper. The tube is excised by using a the LigaSure along the mesosalpinx until the piece of the tube was reached. Tube was then crossclamped and cauterized with the LigaSure and excised. The identical procedure is performed on the left side. Good hemostasis is noted at both sites. Instruments are removed and pneumoperitoneum was reduced. Skin incisions were closed using 4-0 nylon in an interrupted fashion. Sterile bandages were applied. Vaginal instruments are removed. Sponge, needle, and instrument counts are correct per the OR staff. Patient is awakened from anesthesia and taken to recovery in stable condition. Estimated Blood Loss 0 Drains No Packing No Pathology Yes ( Bilateral tubes) Complications No immediate complications Condition Stable Disposition PACU
[2022-07-26] MEDS: fentaNYL CITRATE INJ (*CRX) 100 MCG/2 ML VIAL 25 MCG IV PUSH ×4 (08:20→08:43)
[2022-07-26] MEDS: oxyCODONE HCL (*CRX) 5 MG TAB IR PO (09:22)
== END 2022-07-26 09:51 | disposition home or self-care (01) ==
PROVIDERS: Visit Provider Obstetrics & Gynecology Gynecology
PROC: (CPT 58671; principal; 2022-07-26 07:30)
DX: Z30.2 Encounter for sterilization (principal); Z87.891 Personal history of nicotine dependence
CPT/HCPCS: 58661; 88302; A9270; J0330; J1100; J2250; J2405; J2704; J3010; J7120